=== PATIENT | female | born 1975 | race Caucasian/White ===

== ENCOUNTER 2017-04-06 11:04 | Emergency (ER) | payer MEDICAID ==
[~2017-04-06] VITALS: Ht 160 cm; Wt 60.8 kg
[2017-04-06 12:39] VITALS: BP 114/67
== END 2017-04-06 13:02 | disposition home or self-care (01) ==
LOC: ED 11:04
DX: J45.901 Unspecified asthma with (acute) exacerbation (principal)
CPT/HCPCS: J0171; J2930; J3475; J7030; J7613; J7644

== ENCOUNTER 2017-11-19 01:06 | Emergency (ER) | payer SELFPAY ==
[2017-11-19 03:27] VITALS: BP 110/68
== END 2017-11-19 03:27 | disposition home or self-care (01) ==
LOC: ED 01:06
DX: J45.901 Unspecified asthma with (acute) exacerbation (principal); J20.9 Acute bronchitis, unspecified
CPT/HCPCS: J2930; J7620; Q0092

== ENCOUNTER 2018-02-19 18:06 | Emergency (ER) | payer MEDICAID ==
[~2018-02-19] VITALS: Ht 154.9 cm; Wt 56.0 kg
[2018-02-19 20:14] LABS: microscopic required? YES; urine erythrocyte 1+ (NEGATIVE)
[2018-02-19 20:18] LABS: CALCIUM 10.7 mg/dL (8.5-10.1); CARBON DIOXIDE 27.4 mmol/L (21-32); CHLORIDE SERUM 103 mmol/L (98-107); CREATININE SERUM 0.6 mg/dL (0.6-1.0); GFR1 > 60 mL/min; GLUCOSE SERUM 134 mg/dL (74-106); POTASSIUM SERUM 3.3 mmol/L (3.5-5.1); SODIUM SERUM 140 mmol/L (136-145)
[2018-02-19 20:20] LABS: BASOPHIL % 0.5 % (0-2); PLATELET COUNT 219 x10^3mcL (130-400); RED CELL DISTRIBUTION WIDTH 13.4 % (11.5-14.5)
[2018-02-19 20:23] LABS: ALKALINE PHOSPHATASE 100 U/L (46-116); ALT/SGPT 20 U/L (14-59); AST/SGOT 10 U/L (15-37); BILIRUBIN TOTAL 0.3 mg/dL (0.20-1.00); TOTAL PROTEIN, SERUM 7.6 g/dL (6.4-8.2)
[2018-02-19 22:45] VITALS: BP 111/82
== END 2018-02-19 22:45 | disposition home or self-care (01) ==
LOC: ED 18:06
PROVIDERS: Emergency Medicine
DX: R10.31 Right lower quadrant pain (principal); J45.909 Unspecified asthma, uncomplicated
CPT/HCPCS: 36415; 87491; 87591; J1885

== ENCOUNTER 2018-07-30 11:39 | Emergency (ER) | payer SELFPAY ==
[~2018-07-30] VITALS: Ht 157.5 cm; Wt 61.7 kg
[2018-07-30 11:44] VITALS: Ht 157.5 cm; Wt 61.7 kg
[2018-07-30 12:35] LABS: BASOPHIL % 0.4 % (0-2); PLATELET COUNT 226 x10^3mcL (130-400); RED CELL DISTRIBUTION WIDTH 13.6 % (11.5-14.5)
[2018-07-30 13:01] LABS: CALCIUM 10.2 mg/dL (8.5-10.1); CARBON DIOXIDE 26.5 mmol/L (21-32); CHLORIDE SERUM 106 mmol/L (98-107); CREATININE SERUM 0.7 mg/dL (0.6-1.0); GFR1 > 60 mL/min; GLUCOSE SERUM 106 mg/dL (74-106); POTASSIUM SERUM 3.8 mmol/L (3.5-5.1); SODIUM SERUM 143 mmol/L (136-145)
[2018-07-30 13:05] LABS: ALBUMIN 4.4 g/dL (3.4-5.0); ALKALINE PHOSPHATASE 89 U/L (46-116); ALT/SGPT 46 U/L (14-59); AST/SGOT 13 U/L (15-37); BILIRUBIN TOTAL 0.33 mg/dL (0.20-1.00); TOTAL PROTEIN, SERUM 7.6 g/dL (6.4-8.2)
[2018-07-30 14:01] VITALS: BP 110/68
== END 2018-07-30 14:01 | disposition home or self-care (01) ==
LOC: ED 11:39
PROVIDERS: Emergency Medicine
DX: R07.89 Other chest pain (principal); R53.83 Other fatigue; J45.909 Unspecified asthma, uncomplicated
CPT/HCPCS: 36415; 85378; J7613

== ENCOUNTER 2019-01-05 07:23 | Emergency (ER) | payer SELFPAY ==
[~2019-01-05] VITALS: Ht 154.9 cm; Wt 64.4 kg
[2019-01-05 07:38] VITALS: BP 131/79
== END 2019-01-05 08:45 | disposition home or self-care (01) ==
LOC: ED 07:23
DX: J45.901 Unspecified asthma with (acute) exacerbation (principal)
CPT/HCPCS: J7613; J7644

== ENCOUNTER 2019-06-20 21:06 | Emergency (ER) | payer MEDICAID ==
[~2019-06-20] VITALS: Ht 165.1 cm; Wt 66.5 kg
[2019-06-20 21:08] VITALS: Ht 165.1 cm; Wt 66.5 kg
[2019-06-20 22:56] VITALS: BP 103/70
== END 2019-06-20 22:56 | disposition home or self-care (01) ==
LOC: ED 21:06
DX: J45.901 Unspecified asthma with (acute) exacerbation (principal)
CPT/HCPCS: J2930; J7613; J7644

== ENCOUNTER 2019-10-12 10:02 | Emergency (ER) | payer MEDICAID ==
[~2019-10-12] VITALS: Ht 162.6 cm; Wt 67.6 kg
[2019-10-12 13:08] VITALS: BP 115/81
== END 2019-10-12 13:08 | disposition home or self-care (01) ==
LOC: ED 10:02 → EDBD 10:02 → ED 13:08
DX: J45.901 Unspecified asthma with (acute) exacerbation (principal)
CPT/HCPCS: J2930; J7030; J7613; J7620; Q0092

== ENCOUNTER 2020-08-20 21:44 | Emergency (ER) | payer MEDICAID ==
[~2020-08-20] VITALS: Ht 165.1 cm; Wt 67.6 kg
[2020-08-20 21:59] VITALS: Ht 165.1 cm; Wt 67.6 kg
[2020-08-20 23:24] LABS: BASOPHIL % 0.7 % (0-2); PLATELET COUNT 233 x10^3mcL (130-400); RED CELL DISTRIBUTION WIDTH 14.5 % (11.5-14.5)
[2020-08-20 23:42] LABS: CALCIUM 10.4 mg/dL (8.5-10.1); CHLORIDE SERUM 103 mmol/L (98-107); CREATININE SERUM 0.6 mg/dL (0.6-1.0); GFR1 > 60 mL/min; GLUCOSE SERUM 112 mg/dL (74-106); POTASSIUM SERUM 3.8 mmol/L (3.5-5.1); SODIUM SERUM 135 mmol/L (136-145)
[2020-08-20 23:46] LABS: ALBUMIN 4.3 g/dL (3.4-5.0); ALKALINE PHOSPHATASE 90 U/L (46-116); ALT/SGPT 60 U/L (14-59); AST/SGOT 34 U/L (15-37); BILIRUBIN TOTAL 0.3 mg/dL (0.20-1.00); LIPASE 136 IU/L (73-393); TOTAL PROTEIN, SERUM 7.5 g/dL (6.4-8.2)
[2020-08-21 02:13] VITALS: BP 114/74
== END 2020-08-21 02:13 | disposition home or self-care (01) ==
LOC: ED 21:44
PROVIDERS: Emergency Medicine
DX: K29.70 Gastritis, unspecified, without bleeding (principal); B96.89 Other specified bacterial agents as the cause of diseases classified elsewhere
CPT/HCPCS: Q0092